=== PATIENT | female | born 1990 | race Caucasian/White ===

== ENCOUNTER 2016-06-27 22:30 | Emergency (ER) | payer OTHER ==
[~2016-06-27] VITALS: Ht 162.6 cm; Wt 57.6 kg
--- NOTE | 2016-06-27 22:38 | NUR ---
CALLED FOR PT TO BE TRIAGED. NO ANSWER
[2016-06-27 22:47] VITALS: BP 139/89
--- NOTE | 2016-06-28 02:14 | NUR ---
PATIENT LEFT WITHOUT BEING SEEN BY DR. KAY. NO FURTHER CARE PROVIDED FOR PATIENT.
== END 2016-06-28 02:16 | disposition left against medical advice (07) ==
LOC: MED 22:30
DX: R10.11 Right upper quadrant pain (principal); R10.12 Left upper quadrant pain; Z53.21 Procedure and treatment not carried out due to patient leaving prior to being seen by health care provider
CPT/HCPCS: 81025